=== PATIENT | female | born 1980 | race Caucasian/White ===

== ENCOUNTER 2016-10-30 13:52 | Emergency (ER) | payer BC, OTHER ==
--- NOTE | 2016-10-30 15:00 | EDM.PDOC ---
ED HPI GENERAL MEDICAL PROBLEM - General Chief Complaint: Back Pain or Injury Stated Complaint: Back pain Time Seen by Provider: 10/30/16 14:50 Source of Information: Reports: Patient, RN Notes Reviewed History Limitations: Reports: No Limitations - History of Present Illness INITIAL COMMENTS - FREE TEXT/NARRATIVE: 36 year old female presents to the ED with pain and "bulge" to her right flank region. The symptoms started in July and have progressively been worsening since. The bulge seems to be increasing in size but seems to fluctuate. The area is tender to touch. No fever or chills. No redness. No open wounds. No injury or fall. She has a history of degenerative disc disease in her back but says this is different than her typical back pain. Treatments MANAGER RESEARCH AND DEVELOPMENT: Reports: Other (see below) Other Treatments MANAGER RESEARCH AND DEVELOPMENT: Ibuprofen Lower Back Pain Score (Numeric/FACES): 7 - Related Data Allergies Allergy/AdvReac Type Severity Reaction Status Date / Time promethazine [From Phenergan] Allergy Hives Verified 10/30/16 14:21 cycline antibiotics Allergy Anaphylactic Uncoded 10/30/16 14:21 Shock Home Meds: Home Meds Adderal. 10/30/16 [History] Furosemide [Lasix] 20 mg PO DAILY 10/30/16 [History] LORazepam [Ativan] 1 mg PO ASDIRECTED PRN 10/30/16 [History] PARoxetine HCl [Paxil] 50 mg PO BEDTIME 10/30/16 [History] cloNIDine [Catapres] 0.2 mg PO DAILY 10/30/16 [History] oxyCODONE HCl/Acetaminophen [Oxycodone-Acetaminophen 5-325] 1 - 2 each PO Q6H PRN #20 tablet 10/30/16 [Rx] ED ROS GENERAL - Review of Systems Review Of Systems: See Below Constitutional: Reports: No Symptoms. Denies: Fever, Chills, Diaphoresis Respiratory: Reports: No Symptoms. Denies: Shortness of Breath Cardiovascular: Reports: No Symptoms. Denies: Chest Pain GI/Abdominal: Reports: No Symptoms. Denies: Abdominal Pain, Nausea, Vomiting Musculoskeletal: Reports: Back Pain, Muscle Pain Skin: Reports: Lumps Neurological: Reports: No Symptoms ED EXAM,LOWER BACK PAIN/INJURY - Physical Exam Exam: See Below Exam Limited By: No Limitations General Appearance: Alert, WD/WN, No Apparent Distress, Anxious Respiratory/Chest: No Respiratory Distress, Lungs Clear, Normal Breath Sounds Cardiovascular: Regular Rate, Rhythm Back Exam: Other (there is a palpable mass to her right CVA region. The mass is form and not well demarciated. The muscle is hard and tight. It is tender to palpation. There is no tenderness or wamrth. ). No: Vertebral Tenderness Neurological: Alert, Normal Gait, No Motor/Sensory Deficits, Oriented x 3 Course - Vital Signs Last Recorded V/S: Last Vital Signs Temp 98.2 F 10/30/16 14:24 Pulse 70 10/30/16 19:00 Resp BP 120/83 10/30/16 19:00 Pulse Ox 91 L 10/30/16 19:00 - Orders/Labs/Meds Orders: Active Orders 24 hr Category Date Time Status Peripheral IV Care [RC] . DIRECTED Care 10/30/16 17:00 Active Extremity Non Vascular Rt [US] Stat Exams 10/30/16 15:12 Taken Peripheral IV Insertion Adult [OM.PC] Stat Oth 10/30/16 17:00 Ordered Labs: Laboratory Tests 10/30/16 10/30/16 Range/Units 17:16 17:16 WBC 8.07 (3.98-10.04) K/mm3 RBC 4.89 (3.98-5.22) M/mm3 Hgb 14.5 (11.2-15.7) gm/L Hct 43.1 (34.1-44.9) % MCV 88.1 (79.4-94.8) fl MCH 29.7 (25.6-32.2) pg MCHC 33.6 (32.2-35.5) g/dl RDW Std Deviation 44.3 (36.4-46.3) fL Plt Count 298 (182-369) K/mm3 MPV 9.8 (9.4-12.3) fl Neutrophils % (Manual) 71 H (40-60) % Band Neutrophils % 0 (0-10) % Lymphocytes % (Manual) 26 (20-40) % Atypical Lymphs % 0 % Monocytes % (Manual) 3 (2-10) % Eosinophils % (Manual) 0 L (0.7-5.8) % Basophils % (Manual) 0 L (0.1-1.2) Platelet Estimate Adequate RBC Morph Comment Normal Sodium 139 (136-145) mEq/L Potassium 3.8 (3.5-5.1) mEq/L Chloride 102 (98-107) mEq/L Carbon Dioxide 28 (21-32) mEq/L Anion Gap 12.8 (5-15) BUN 11 (7-18) mg/dL Creatinine 0.8 (0.55-1.02) mg/dL Est Cr Clr Drug Dosing 91.01 mL/min Estimated GFR (MDRD) > 60 (>60) mL/min BUN/Creatinine Ratio 13.8 L (14-18) Glucose 66 L (74-106) mg/dL Calcium 9.3 (8.5-10.1) mg/dL Total Bilirubin 0.3 (0.2-1.0) mg/dL AST 19 (15-37) U/L ALT 30 (14-59) U/L Alkaline Phosphatase 92 (46-116) U/L C-Reactive Protein 0.7 (<1.0) mg/dL Total Protein 8.3 H (6.4-8.2) g/dl Albumin 4.3 (3.4-5.0) g/dl Globulin 4.0 gm/dL Albumin/Globulin Ratio 1.1 (1-2) Meds: Medications Discontinued Medications Generic Name Dose Route Start Last Admin Trade Name Freq PRN Reason Stop Dose Admin Cyclobenzaprine HCl 5 mg 10/30/16 15:17 10/30/16 15:26 Flexeril PO 10/30/16 15:18 5 mg ONETIME ONE Administration Cyclobenzaprine HCl 5 mg 10/30/16 16:18 10/30/16 16:29 Flexeril PO 10/30/16 16:19 5 mg ONETIME ONE Administration Hydromorphone HCl 0.5 mg 10/30/16 17:00 10/30/16 18:02 Dilaudid IVPUSH 10/30/16 17:01 0.5 mg ONETIME ONE Administration Ketorolac Tromethamine 60 mg 10/30/16 16:18 10/30/16 16:30 Toradol IM 10/30/16 16:19 60 mg ONETIME ONE Administration Lorazepam 0.5 mg 10/30/16 17:02 10/30/16 17:18 Ativan IVPUSH 10/30/16 17:03 0.5 mg ONETIME ONE Administration Sodium Chloride 10 ml 10/30/16 17:00 10/30/16 17:25 Saline Flush FLUSH 10 ml ASDIRECTED PRN Administration Keep Vein Open - Re-Assessments/Exams Free Text/Narrative Re-Assessment/Exam: Case was discussed with Dr. Ramos who recommends ultrasound. Ultrasound was read by [facility], impression: 6.6 x 2.6 x 4 cm fluid collection with internal debris at the site of the palpable abnormality in the lower right back, see differential diagnosis ( hematoma, seroma with internal debris, less likely an abscess). CBC, CMP, and CRP were added, all of which are normal. Normal WBC and CRP rule out the diagnosis of cellulitis or infectious process. Discussed ultrasound findings with Dr. Ramos who recommends consult with Dr. Eden, General Surgeon mobile application engineer. Dr. Eden came in and attempted to drain the mass. However, Dr. Eden reports that this is a solid mass rather than a fluid collection. He recommends further imaging at the recommendation of the radiologist and then outpatient follow-up with him following the imaging. I phoned Dr. Barcenas, Radiologist with [facility] who read the ultrasound, and discussed the case with him. He recommends MRI with and without gadolinium to further evaluate this mass. It is after 5pm so I am unable to schedule this for the patient tonight. An outpatient order has been completed and the radiology department will call her tomorrow to schedule. She was prescribed Percocet for pain. Her and her significant other were educated on plan of care and f/u instructions. Discharge instructions as documented. Departure - Departure Time of Disposition: 18:37 Disposition: Home, Self-Care 01 Condition: good Clinical Impression: Mass on back - Discharge Information Prescriptions: oxyCODONE HCl/Acetaminophen [Oxycodone-Acetaminophen 5-325] 1 - 2 each PO Q6H PRN #20 tablet PRN Reason: Pain Referrals: PCP,None [Primary Care Provider] - Forms: ED Department Discharge Additional Instructions: Ice or heat to your back, whichever feels better Percocet 1-2 tabs every 6 hours as needed Our radiology department will call you tomorrow to set up the MRI Follow-up with Dr. Eden the day after your MRI Take 1-2mg of Ativan prior to your MRI to help with anxiety Return to ER with any further problems - My Orders Last 24 Hours: My Active Orders 10/30/16 15:12 Extremity Non Vascular Rt [US] Stat 10/30/16 17:00 Peripheral IV Care [RC] . DIRECTED Peripheral IV Insertion Adult [OM.PC] Stat - Assessment/Plan Last 24 Hours: My Active Orders 10/30/16 15:12 Extremity Non Vascular Rt [US] Stat 10/30/16 17:00 Peripheral IV Care [RC] . DIRECTED Peripheral IV Insertion Adult [OM.PC] Stat
[2016-10-30] MEDS ORDERED: Cyclobenzaprine 10 MG Tab PO ONE ×2 (15:17→16:18)
[2016-10-30] MEDS ORDERED: Ketorolac 60 MG/2 ML SDV IM ONE (16:18)
[2016-10-30] MEDS ORDERED: HYDROmorphone 0.5 MG/0.5 ML Syringe IVPUSH ONE (17:00)
[2016-10-30] MEDS ORDERED: Sodium Chloride 0.9% 10 ML Syringe FLUSH PRN (17:00)
[2016-10-30] MEDS ORDERED: LORazepam 2 MG/ML MDV IVPUSH ONE (17:02)
[2016-10-30 19:18] VITALS: BP 120/83
--- NOTE | 2016-10-31 06:55 | PROC ---
DATE OF OPERATION: 10/30/2016 SURGEON: Van Eden MD PREOPERATIVE DIAGNOSIS: Cystic flank mass on the back. POSTOPERATIVE DIAGNOSIS: Cystic flank mass on the back. PROCEDURE: Ultrasound-guided needle aspirate. FINDINGS: Dry tap. No fluid. INDICATIONS: The patient has developed a swelling over the right flank area and back area which has been with her since July and gradually increased in size. It is now painful. Ultrasound was done showing a cystic-like mass. DESCRIPTION OF PROCEDURE: The patient was seen in the emergency room, was placed in upright position over a bedside stand. The area in question was ultrasound in the most appropriate place for aspiration was chosen. This was then prepped with Betadine and 1% Xylocaine was infiltrated in the skin over the chantale and an 18-gauge needle was inserted but no aspirate fluid was obtained. The procedure was terminated and suggests this is a solid mass and will be further worked up with a CT scan. ESTIMATED BLOOD LOSS: MMODAL /[id number]
--- NOTE | 2016-10-31 11:40 | US ---
Back ultrasound: Multiple real-time images lateral to the lumbar spine were obtained. Nonspecific hypoechoic area is identified in the area of lump measuring about 6.6 x 4.0 x 2.6 cm. By preliminary [facility] report, an attempted aspiration was performed which was unsuccessful. MRI is now recommended to further evaluate. Impression: 1. Finding as noted above. MRI is recommended. MRI should be performed without and with contrast. Diagnostic code #9 Agree with preliminary report issued by [facility] ([facility] preliminary report dictated on 10/30/16, 5:43 PM Central Time)
== END 2016-10-30 19:10 | disposition home or self-care (01) ==
LOC: JD.ED 13:52
DX: R22.2 Localized swelling, mass and lump, trunk (principal); Z79.899 Other long term (current) drug therapy; Z88.8 Allergy status to other drugs, medicaments and biological substances
CPT/HCPCS: 36415; 76881; 76942; 80053; 85025; 86140; 96372; 96374; 96375; 99284; A9270; J1170; J1885; J2060; J7050

== ENCOUNTER 2016-11-10 06:58 | Day surgery (SDC) | payer BC ==
[~2016-11-10 06:58] MED LIST: Lactated Ringers 1,000 ML IV SCH; Lidocaine 1%/Sod Bicarbonate in NS 8.4% 1 ML Syringe IV PRN; Sodium Chloride 0.9% 10 ML Syringe FLUSH PRN
[2016-11-10] MEDS ORDERED: Lidocaine 1% with EPINEPHrine 1:100,000 20 ML MDV ONE (07:28)
--- NOTE | 2016-11-10 07:29 | PCM.PREANE ---
Preanesthetic Assessment - Procedure Proposed Procedure: Excision of Right flank mass - Anesthesia/Transfusion/Family Hx Anesthesia History: Prior Anesthesia Without Reaction Family History of Anesthesia Reaction: No Transfusion History: Prior Transfusion Without Reaction Type of Transfusion Reactions: Reports: Unknown Intubation History: Unknown - Review of Systems General: No Symptoms Pulmonary: No Symptoms Cardiovascular: No Symptoms Gastrointestinal: Other (GERD) Neurological: No Symptoms Other: Reports: Easy Bruising, Depression, Anxiety - Physical Assessment NPO Status Date: 11/09/16 NPO Status Time: 23:45 Pulse: 62 O2 Sat by Pulse Oximetry: 97 Respiratory Rate: 16 Blood Pressure: 110/72 Temperature: 36.9 C Height: 1.68 m Weight: 87.997 kg ASA Class: 2 Mental Status: Alert & Oriented x3 Airway Class: Mallampati = 1 Dentition: Reports: Missing Tooth/Teeth (multiple missing/broken molars ) Thyro-Mental Finger Breadths: 3 Mouth Opening Finger Breadths: 3 ROM/Head Extension: Full Lungs: Clear to auscultation, Normal respiratory effort Cardiovascular: Regular Rate, Regular Rhythm - Lab Values: Laboratory Last Values Urine HCG, Qual Negative (NEGATIVE) 11/10/16 07:05 - Allergies Allergies/Adverse Reactions: Allergies Allergy/AdvReac Type Severity Reaction Status Date / Time promethazine [From Phenergan] Allergy Hives Verified 11/09/16 16:32 cycline antibiotics Allergy Anaphylactic Uncoded 11/09/16 16:32 Shock - Blood Blood Available: No Product(s) Available: None - Anesthesia Plan Pre-Op Medication Ordered: None - Acknowledgements Anesthesia Type Planned: General Anesthesia Pt an Appropriate Candidate for the Planned Anesthesia: Yes Alternatives and Risks of Anesthesia Discussed w Pt/Guardian: Yes Pt/Guardian Understands and Agrees with Anesthesia Plan: Yes PreAnesthesia Questionnaire Cardiovascular History: Reports: None Respiratory History: Reports: None Gastrointestinal History: Reports: Other (See Below) Other Gastrointestinal History: stomach ulcers Musculoskeletal History: Reports: Osteoarthritis, RA, Other (See Below) Other Musculoskeletal History: degenerative disk disease and a cracked orbital fracture Neurological History: Reports: Concussion, Migraines Psychiatric History: Reports: ADD, Anxiety, Depression, OCD Endocrine/Metabolic History: Reports: None Hematologic History: Reports: Anemia Immunologic History: Reports: None Oncologic (Cancer) History: Reports: None Dermatologic History: Reports: Other (See Below) Other Dermatologic History: acne - Past Surgical History Head Surgeries/Procedures: Reports: None HEENT Surgical History: Reports: Adenoidectomy, Myringotomy w Tube(s), Tonsillectomy Cardiovascular Surgical History: Reports: None Respiratory Surgical History: Reports: None GI Surgical History: Reports: None Female Surgical History: Reports: Breast Implant Other Female Surgeries/Procedures: breat augmentation Male Surgical History: Reports: None Endocrine Surgical History: Reports: None Neurological Surgical History: Reports: None Musculoskeletal Surgical History: Reports: None Oncologic Surgical History: Reports: None - SUBSTANCE USE Smoking Status *Q: Current Every Day Smoker (0.5ppd for 7 years) Tobacco Use Within Last Twelve Months: Cigarettes Second Hand Smoke Exposure: No Recreational Drug Use History: No - HOME MEDS Home Medications: Home Meds oxyCODONE HCl/Acetaminophen [Oxycodone-Acetaminophen 5-325] 1 - 2 each PO Q6H PRN #20 tablet 10/30/16 [Rx] Acetaminophen [Tylenol] 650 mg PO Q4H PRN 11/09/16 [History] Adapalene [Adapalene] 1 applic TOP DAILY 11/09/16 [History] Cetirizine [ZyrTEC] 10 mg PO DAILY 11/09/16 [History] Dextroamphetamine/Amphetamine [Adderall Xr 15 mg Capsule] 15 mg PO QAM 11/09/16 [History] Dextroamphetamine/Amphetamine [Adderall] 15 mg PO BID 11/09/16 [History] Furosemide [Lasix] 20 mg PO DAILY PRN 11/09/16 [History] LORazepam [Ativan] 1 mg PO TID 11/09/16 [History] PARoxetine HCl [Paroxetine Cr] 25 mg PO BEDTIME 11/09/16 [History] RX: Ibuprofen 1 - 3 cap PO Q6H PRN 11/09/16 [History] Sulfamethoxazole/Trimethoprim [Bactrim Ds Tablet] 1 tab PO BID 11/09/16 [History ] cloNIDine HCl [Catapres] 0.3 mg PO DAILY 11/09/16 [History] - CURRENT (IN HOUSE) MEDS Current Meds: Current Medications Lactated Ringer's (Ringers, Lactated) 1,000 mls @ 125 mls/hr IV ASDIRECTED PEGGY Lidocaine/Sodium Bicarbonate (Buffered Lidocaine 1% In Ns 8.4%) 0.25 ml IV ONETIME PRN PRN Reason: Prior to IV Start Sodium Chloride (Saline Flush) 10 ml FLUSH ASDIRECTED PRN PRN Reason: Keep Vein Open
[2016-11-10] MEDS ORDERED: fentaNYL 250 MCG/5 ML SDV ONE ×2 (07:54→09:21)
[2016-11-10] MEDS ORDERED: Dexamethasone 4 MG/ML SDV ONE (07:54)
[2016-11-10] MEDS ORDERED: Ondansetron 4 MG/2 ML SDV ONE (07:54)
[2016-11-10] MEDS ORDERED: Propofol 200 MG/20 ML SDV ONE (07:54)
[2016-11-10] MEDS ORDERED: Lidocaine 1% 4 ML ONE (07:54)
[2016-11-10] MEDS ORDERED: Succinylcholine/Normal Saline 100 MG/5 ML Syringe ONE (07:54)
[2016-11-10] MEDS ORDERED: Midazolam 1 MG/ML 2 ML SDV ONE (07:54)
[2016-11-10] MEDS ORDERED: HYDROmorphone 1 MG/ML Syringe ONE (08:48)
[2016-11-10] MEDS ORDERED: Ketamine 500 mg/10 ML MDV ONE (08:50)
[2016-11-10] MEDS ORDERED: Ondansetron 4 MG/2 ML SDV IVPUSH PRN ×2 (09:01→11:06)
[2016-11-10] MEDS ORDERED: Meperidine PF 50 MG/ML Syringe IVPUSH PRN (09:01)
[2016-11-10] MEDS ORDERED: diphenhydrAMINE 50 MG/ML SDV IVPUSH PRN (09:01)
--- NOTE | 2016-11-10 10:55 | PCM.POSTAN ---
POST ANESTHESIA ASSESSMENT - MENTAL STATUS Mental Status: alert, oriented - VITAL SIGNS Pulse Rate: 100 SaO2: 95 Resp Rate: 20 Blood Pressure: 144/97 Temperature: 36.1 C - RESPIRATORY Respiratory Status: respiratory rate WNL, airway patent, O2 saturation stable, supplemental oxygen - CARDIOVASCULAR CV Status: pulse rate WNL, blood pressure stable - GASTROINTESTINAL GI Status: no symptoms - PAIN Pain Score: 0 - POST OP HYDRATION Hydration Status: adequate & stable
--- NOTE | 2016-11-10 10:59 | PCM.OPNOTE ---
- General Post-Op/Procedure Note Date of Surgery/Procedure: 11/10/16 Operative Procedure(s): excision of mass rt flank Pre Op Diagnosis: mass rt flank Anesthesia Technique: General ET tube Primary Surgeon: Van Eden EBL in mLs: 300 Complications: None Condition: Good
[2016-11-10] MEDS: HYDROmorphone 0.5 MG/0.5 ML Syringe IVPUSH PRN ×2 (11:00→11:16)
[2016-11-10] MEDS ORDERED: HYDROmorphone 0.5 MG/0.5 ML Syringe IVPUSH PRN (11:05)
[2016-11-10] MEDS: fentaNYL 100 MCG/2 ML SDV IVPUSH PRN ×4 (11:05→11:40)
[2016-11-10] MEDS ORDERED: Acetaminophen/HYDROcodone 325-5 MG Tab PO PRN (11:06)
[2016-11-10] MEDS ORDERED: Ketorolac 30 MG/ML SDV IVPUSH PRN (11:08)
[2016-11-10] MEDS ORDERED: Lactated Ringers 1,000 ML IV SCH (11:15)
[2016-11-10] MEDS ORDERED: LORazepam 2 MG/ML MDV IVPUSH ONE (11:20)
[2016-11-10 13:30] VITALS: BP 125/71
[2016-11-10] MEDS ORDERED: LORazepam 1 MG Tab PO SCH (15:00)
--- NOTE | 2016-11-10 15:25 | PCM48HPAN ---
Post Anesthesia Note - EVALUATION WITHIN 48HRS OF ANESTHETIC Vital Signs in Normal Range: Yes Patient Participated in Evaluation: No (report from nurses stating she was doing well upon discharge ) Respiratory Function Stable: Yes Airway Patent: Yes Cardiovascular Function Stable: Yes Hydration Status Stable: Yes Pain Control Satisfactory: Yes Nausea and Vomiting Control Satisfactory: Yes Mental Status Recovered: Yes
[2016-11-10] MEDS ORDERED: PAROXETINE HCL 25 MG PO SCH (21:00)
--- NOTE | 2016-11-11 08:08 | OR ---
DATE OF OPERATION: 11/10/2016 SURGEON: Van Eden MD PREOPERATIVE DIAGNOSIS: Mass in the right flank area. POSTOPERATIVE DIAGNOSIS: Mass in the right flank area. OPERATION PERFORMED: Excision under general anesthetic. ESTIMATED BLOOD LOSS: About 300 mL. FINDINGS: A 7 cm cystic-like structure in a capsule unattached and surrounding tissue lying up against the paraspinous muscles. DESCRIPTION OF PROCEDURE: The patient was taken to the operating room, placed in a supine position, given a general anesthetic and intubated and placed in the left lateral position with protection of the knees and an axillary roll was placed. She was placed in a ford bag and held into position with a deflated ford bag. The anterior flank and back were then prepped with DuraPrep and draped off in a sterile fashion. A transverse incision was made in the previous needle chantale where aspiration was attempted and carried down by sharp dissection through the fascia. Ultrasound was then performed showing that the lesion was inferior and the decision was made to increase the incision making 2 inferior incisions to form a flap that was based inferiorly. The subcuticular tissue was then incised over this lump and carried down to the anterior and inferior border where the mass was palpated and was able to dissect it off the paraspinous muscles. Bleeding points were clamped and tied off and were appropriate. Most of the bleeding came from the paraspinous muscles. This was then easily once brought into view and came off the fat pad. There were no attachments to muscles or fat was noted with cystic in an elliptical fashion and measured 7 cm. This was sent to Pathology. Bleeding points were controlled with ligature at 3-0 Vicryl suture where the muscles were repaired and the fat pad was then sutured down into place where the cystic structure resided. The flap underneath the flap of Anton-Alvares drain was placed and brought out through a stab wound anteriorly and the dermis was then brought together with interrupted 3-0 Vicryl suture and the skin with paige. Sterile dressing placed. The patient tolerated the procedure, sent to recovery room in a stable condition and will consider admissions for pain control. ANESTHESIA: MMODAL /[id number]
[2016-11-11] MEDS ORDERED: cloNIDine 0.1 MG Tab PO SCH (09:00)
== END 2016-11-10 14:50 | disposition home or self-care (01) ==
LOC: JD.SDS 06:58
PROVIDERS: ATTEND Surgery
PROC: 0JB80ZZ Excision of Abdomen Subcutaneous Tissue and Fascia, Open Approach (ICD-10-PCS; principal; 2016-11-10)
DX: D21.6 Benign neoplasm of connective and other soft tissue of trunk, unspecified (principal)
CPT/HCPCS: 21933; 76942; 81025; A9270; J0330; J1100; J1170; J2060; J2250; J2405; J3010; J7120; 00300; J2704

== ENCOUNTER 2023-02-17 18:46 | Emergency (ER) | payer OTHER ==
[2023-02-17] MEDS ORDERED: Sodium Chloride 0.9% 1,000 ML IV ONE ×2 (19:25→21:56)
[2023-02-17] MEDS ORDERED: Morphine 4 MG/ML Syringe IVPUSH ONE (19:25)
[2023-02-17] MEDS ORDERED: Ondansetron 4 MG/2 ML SDV IVPUSH ONE (19:25)
[2023-02-17] MEDS ORDERED: Sodium Chloride 0.9% 10 ML Syringe FLUSH PRN (19:27)
[2023-02-17] MEDS ORDERED: Iopamidol 612 MG/ML 100 ML Bottle IVPUSH ONE (19:27)
[2023-02-17 20:29] LABS: BASOPHILS PERCENT AUTO 0.2 % (0.0-1.0); EOSINOPHILS ABSOLUTE AUTO 0.1 K/mm3 (0.0-0.4); EOSINOPHILS PERCENT AUTO 0.2 % (0.0-6.0); HEMATOCRIT 50.2 % (37.0-47.0); HEMOGLOBIN 17.3 gm/dl (12.0-16.0); IMMATURE GRAN ABSOLUTE AUTO 0.16 K/mm3 (0.00-0.05); IMMATURE GRAN PERCENT AUTO 0.8 % (0.0-0.4); LYMPHOCYTES ABSOLUTE AUTO 1.2 K/mm3 (1.0-4.8); LYMPHOCYTES PERCENT AUTO 5.4 % (24.0-44.0); MEAN CORPUSCULAR HEMOGLOBIN 28.9 pg (28.0-32.0); MEAN CORPUSCULAR HGB CONC 34.5 g/dl (32.0-36.0); MEAN CORPUSCULAR VOLUME 83.8 fl (83.0-99.0); MEAN PLATELET VOLUME 9.9 fl (9.4-12.3); MONOCYTES ABSOLUTE AUTO 1.1 K/mm3 (0.0-0.8); MONOCYTES PERCENT AUTO 5.2 % (0.0-8.0); NEUTROPHILS ABSOLUTE AUTO 18.7 K/mm3 (1.8-7.7); NEUTROPHILS PERCENT AUTO 88.2 % (41.0-71.0); PLATELET COUNT,PLT 349 K/mm3 (150-400); RED BLOOD CELL COUNT 5.99 M/mm3 (4.10-5.30); WHITE BLOOD CELL COUNT,WBC 21.24 K/mm3 (3.9-11.3)
[2023-02-17] MEDS ORDERED: diphenhydrAMINE 50 MG/ML SDV IVPUSH ONE (20:29)
[2023-02-17] MEDS ORDERED: Labetalol 100 MG/20 ML MDV IVPUSH ONE (20:39)
[2023-02-17] MEDS ORDERED: HYDROmorphone 1 MG/ML Syringe IVPUSH ONE ×2 (20:55→21:51)
[2023-02-17 20:59] LABS: A/G RATIO 0.8 (1-2); ALBUMIN 3.9 g/dl (3.4-5.0); ANION GAP 19.7 (5-15); BILIRUBIN TOTAL 1.7 mg/dL (0.2-1.0); BUN/CREATININE RATIO 12.5 (14-18); CALCIUM 10.7 mg/dL (8.5-10.1); CREATININE 0.8 mg/dL (0.55-1.02); EST CRCL DRUG DOSING (CG) 85.76 mL/min; POTASSIUM,K 3.7 mEq/L (3.5-5.1); PROTEIN TOTAL,TP 8.9 g/dl (6.4-8.2)
[2023-02-17] MEDS ORDERED: Piperacillin/Tazobactam 4.5 GM in Sodium Chloride 0.9% 100 ML IV ONE (21:37)
[2023-02-17] MEDS ORDERED: HYDROmorphone 1 MG/ML Syringe IM ONE (21:47)
[2023-02-18 05:18] VITALS: BP 150/100; PULSE 119
== END 2023-02-17 23:42 ==
LOC: JD.ED 18:46
DX: K81.9 Cholecystitis, unspecified (principal); K37 Unspecified appendicitis; Z79.899 Other long term (current) drug therapy; Z88.5 Allergy status to narcotic agent; Z88.8 Allergy status to other drugs, medicaments and biological substances; Z88.1 Allergy status to other antibiotic agents
CPT/HCPCS: 36415; 74177; 76705; 80053; 83605; 83690; 85025; 87040; 96361; 96365; 96375; 96376; 99285; J1170; J1200; J2270; J2405; J2543; J3490; J7030; Q9967